=== PATIENT | male | born 1950 | race Caucasian/White ===

== ENCOUNTER 2019-08-12 05:36 | Day surgery (SDC) | payer MEDICARE, BC ==
[~2019-08-12] VITALS: Ht 177.8 cm; Wt 93.0 kg
[2019-08-12] VITALS (12 sets, daily range): BP systolic 123–140; BP diastolic 72–80
[~2019-08-12 05:36] MED LIST: ACETAMINOPHEN-1 EAC1 ORAL; BUPROBAN150 MG PO; IMITREX50 MG ORAL; INDOMETHACIN75 MG ORAL; RAMIPRIL2.5 MG ORAL; SIMVASTATIN10 MG ORAL; WELLBUTRIN100 MG ORAL; ZOLOFT25 MG ORAL
[2019-08-12] MEDS ORDERED: LEXAPRO10 MG ORAL (06:18)
[2019-08-12] MEDS ORDERED: WELLBUTRIN SR100 MG ORAL (06:18)
[2019-08-12] MEDS ORDERED: Dexamethasone 4mg/ml vial ONE (06:30)
[2019-08-12] MEDS ORDERED: Lidocaine 1% MPF 10mg/ml 5ml ONE (06:30)
[2019-08-12] MEDS ORDERED: Sodium Chloride 10ml vial INJ ONE (06:30)
[2019-08-12] MEDS ORDERED: fentaNYL 100 mcg/2 mL IV ONE (06:31)
[2019-08-12] MEDS ORDERED: Midazolam 2mg/2ml Inj ONE (06:31)
[2019-08-12] MEDS ORDERED: Bupivacaine w/Epi 0.5% 30ml Vial INJ ONE (06:35)
--- NOTE | 2019-08-12 06:37 | Pre-Procedure Note/Attestation ---
Pre-Procedure Note/Attestation Complete Prior to Procedure Planned Procedure: right Procedure Narrative: Arthroscopy, Intra-articular Surgery Right Knee Indications for Procedure Pre-Operative Diagnosis: Torn Medial Meniscus Right Knee Attestation I attest that I discussed the nature of the procedure; its benefits; risks and complications; and alternatives (and the risks and benefits of such alternatives ), prior to the procedure, with the patient (or the patient's legal advertising account representative). I attest that, if there was a reasonable possibility of needing a blood transfusion, the patient (or the patient's legal advertising account representative) was given the [facility] standardized written summary, pursuant to the Chema Lattimer Blood Safety Act ([place] Health and Safety Code # 1645, as amended). I attest that I re-evaluated the patient just prior to the surgery and that there has been no change in the patient's H&P, except as documented below: GENARO MABRY Aug 12, 2019 06:37
[2019-08-12] MEDS ORDERED: LR 1000ml 1,000 ML IVLG SCH (06:43)
[2019-08-12] MEDS ORDERED: HYDROcodone/Acetamin 5/325 tab ORAL PRN (06:45)
[2019-08-12] MEDS ORDERED: Hydromorphone 0.5mg/0.5ml inj IVP PRN (06:45)
[2019-08-12] MEDS ORDERED: DiphenhydrAMINE 50mg/ml Inj IVP PRN (06:45)
[2019-08-12] MEDS ORDERED: fentaNYL 100 mcg/2 mL IV PRN (06:45)
[2019-08-12] MEDS ORDERED: Acetaminophen (Non formulary) 100 ML IV ONE (06:45)
[2019-08-12] MEDS ORDERED: LORazepam Inj 2mg/ml 1ml IV PRN (06:45)
[2019-08-12] MEDS ORDERED: Midazolam 2mg/2ml Inj IVP PRN (06:45)
[2019-08-12] MEDS ORDERED: Ketorolac 30mg Inj IV PRN ×2 (06:45)
[2019-08-12] MEDS ORDERED: Labetalol 5mg/ml 20ml vial IV PRN (06:45)
[2019-08-12] MEDS ORDERED: Atropine Sulfate 0.4mg/ml inj IVP PRN (06:45)
[2019-08-12] MEDS ORDERED: HYDROcodone/Acetamin 7.5/325 tab ORAL PRN (06:45)
[2019-08-12] MEDS ORDERED: oxyCODONE HCL/Acetaminophen 5/325mg ORAL PRN (06:45)
[2019-08-12] MEDS ORDERED: Metoclopramide 10mg/2ml Inj IVP PRN (06:45)
--- NOTE | 2019-08-12 06:49 | Anethesia Preoperative Eval ---
Anesthesia Pre-op PMH/ROS General Date of Evaluation: Aug 12, 2019 Time of Evaluation: 06:46 Anesthesiologist: Carroll ASA Score: ASA 3 Mallampati Score Class I : Soft palate, uvula, fauces, pillars visible Class II: Soft palate, uvula, fauces visible Class III: Soft palate, base of uvula visible Class IV: Only hard plate visible Mallampati Classification: Class II Surgeon: Armond Diagnosis: R Knee Pain Surgical Procedure: R Knee Atrhroscopy Anesthesia History: none Family History: no anesthesia problems Allergies: Coded Allergies: No Known Allergies (Unverified , 01/26/13) Medications: see eMAR Patient NPO?: Yes Past Medical History Cardiovascular: Reports: HTN, other - HL Pulmonary: Reports: GARY Neurologic/Psychiatric: Reports: depression/anxiety Endocrine: Reports: DM Other: obesity - BMI 31 PSxH Narrative: L Knee SX Anesthesia Pre-op Phys. Exam Physician Exam Last Vital Signs Date Time Temp Pulse Resp B/P (MAP) Pulse Ox O2 Delivery O2 Flow Rate FiO2 08/12/19 06:12 Room Air 08/12/19 06:11 98.0 57 20 140/76 95 Constitutional: NAD Neurologic: CN 2-12 intact Cardiovascular: RRR Respiratory: CTA Gastrointestinal: S/NT/ND Airway Exam Mallampati Score: Class II MO: full ROM: limited Teeth: missing, intact Anesthesia Pre-op A/P Risk Assessment & Plan Assessment: ASA 3 Plan: GA Status Change Before Surgery: No Pre-Antibiotics Dru Grams Ancef IV Given Within 1 Hr of Incision: Yes Time Given: 07:01 Woody Hodges MD Aug 12, 2019 06:49
--- NOTE | 2019-08-12 06:54 | Immediate Post-Op Evaluation ---
Immediate Post-Op Evalulation Immediate Post-Op Evalulation Procedure: R Knee Arthroscopy Date of Evaluation: Aug 12, 2019 Time of Evaluation: 08:27 IV Fluids: 800 LR Blood Products: 0 Estimated Blood Loss: 25 Urinary Output: 0 Blood Pressure Systolic: 135 Blood Pressure Diastolic: 76 Pulse Rate: 72 Respiratory Rate: 16 O2 Sat by Pulse Oximetry: 100 Temperature (Fahrenheit): 97.6 Pain Score (1-10): 2 Nausea: No Vomiting: No Complications 0 Patient Status: awake, reacts, patent, none Hydration Status: adequate Dru Grams Ancef IV Given Within 1 Hr of Incision: Yes Time Given: 07:01 Woody Hodges MD Aug 12, 2019 06:54
--- NOTE | 2019-08-12 06:55 | 48 Hour Post Anesthesia Eval ---
Post Anesthesia Evaluation Procedure: R Knee Arthroscopy Date of Evaluation: Aug 12, 2019 Time of Evaluation: 10:34 Blood Pressure Systolic: 132 0: 74 Pulse Rate: 71 Respiratory Rate: 18 Temperature (Fahrenheit): 98.2 O2 Sat by Pulse Oximetry: 97 Airway: patent Nausea: No Vomiting: No Pain Intensity: 2 Hydration Status: adequate Cardiopulmonary Status: Stable Mental Status/LOC: patient returned to baseline Follow-up Care/Observations: 0 Post-Anesthesia Complications: 0 Follow-up care needed: ready to discharge Woody Hodges MD Aug 12, 2019 06:55
[2019-08-12] MEDS ORDERED: LR 1000ml ONE (07:00)
[2019-08-12] MEDS ORDERED: Glycopyrrolate 0.2mg/ml 1ml Vial ONE (07:00)
[2019-08-12] MEDS ORDERED: NS Irrig 4000ml IRRIG ONE ×2 (07:00→07:32)
[2019-08-12] MEDS ORDERED: EPINEPHrine 1mg/1ml Amp ONE (07:00)
[2019-08-12] MEDS ORDERED: Propofol 200mg/20ml IV ONE (07:00)
[2019-08-12] MEDS ORDERED: Meperidine 25mg/0.5ml Inj (FOR RIGORS ONLY) IV PRN (07:15)
--- NOTE | 2019-08-12 08:28 | Brief Operative Note ---
Immediate Post Operative Note Operative Note Pre-op Diagnosis: Torn Medial Meniscus Right Knee Procedure: Arthroscopy, Arthroscopic Partial Medial Meniscectomy Right Knee Post-op Diagnosis: Same, plus Grade IV Chondromalacia Medial Tibial Plateau, Grade II changes MFC, LTP Surgeon: Robson Naphthol Soaping Machine Operator: None Anesthesiologist: Carroll Anesthesia: general Specimen: yes Complications: none Condition: stable Fluids: Per Anesthesia Estimated Blood Loss: minimal Drains: none Tourniquet time: 13 Implant(s) used?: No GENARO MABRY Aug 12, 2019 08:28
--- NOTE | 2019-08-12 16:30 | Operative Note - Dictated ---
DATE OF OPERATION: 08/12/2019 SURGEON: Hay Chance M.D. DIRECTOR OF REIMBURSEMENT: None. ANESTHESIOLOGIST: Dr. Hodges. PREOPERATIVE DIAGNOSIS: Torn medical meniscus, right knee. 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 OPERATION: Arthroscopy, arthroscopic partial medial meniscectomy; limited chondroplasty medial tibial plateau, right knee. DESCRIPTION OF PROCEDURE: The patient was brought to the operating room and placed comfortably in the supine position on the operating table. After satisfactory induction of general endotracheal anesthesia, a tourniquet was placed at the proximal aspect of the right lower extremity. The extremity was then prepped and draped in the usual sterile fashion. Standard 1 cm vertical oblique arthroscopy portals were placed 1 cm medial and 1 cm lateral to the patellar tendon, and 1 cm above the respective joint lines. A 60 mL of sterile irrigation fluid was introduced into the knee and the medial suprapatellar inflow cannula was introduced. The arthroscope was placed through the lateral portal. The patellofemoral examination revealed normal tracking. There was no evidence of medial synovial plica or loose bodies. The patellofemoral articulation revealed grade 2-3 chondromalacic changes, particularly at the lateral facet, as well as the trochlea. No loose fibrillations requiring debridement were present. The tourniquet was inflated to 225 mmHg. Examination of the medial compartment revealed a small vertical tear at the remaining peripheral rim of the posterior horn of the medial meniscus. Mesially, very little posterior horn have remained. Grade 4 chondromalacic change was noted over 80% of the medial tibial plateau, with grade 2 changes also noted at the medial femoral condyle. Tourniquet was inflated, as noted. The torn portion of the medial meniscus was resected using a combination of straight and curved basket forceps. A smooth transition was created to the intact mid zone. At the conclusion of the resection, the remaining meniscus was vigorously probed with no portion found to be loose or dislocatable into the joint. The compartment was then cleared of all meniscal debris using a motorized shaver and suction. A minimal chondroplasty was performed at the medial tibial plateau. The anterior and posterior cruciate ligaments were intact. The lateral femoral condyle was without defect. The lateral tibial plateau revealed grade 2 changes. No loose bodies were noted in the lateral gutter. The lateral meniscus was intact. The knee was then thoroughly irrigated to remove any remaining meniscal debris. The tourniquet was inflated for a total of 13 minutes. The medial and lateral portals were then closed with 3-0 nylon sutures, as well as the medial inflow portal. A 10 mL of 0.5% Marcaine with epinephrine were instilled into the knee at the conclusion. A sterile Xeroform dressing and ELIZABETH stocking were applied at the conclusion of the procedure. Estimated blood loss was negligible. Sponge and needle counts at the conclusion of the procedure were correct. The patient tolerated the procedure well and was returned to the recovery room in good condition. Hay Chance M.D. DR: BRITT JOB#: [id number] CC:
== END 2019-08-12 11:15 | disposition home or self-care (01) ==
LOC: SUR 05:36
DX: S83.241A Other tear of medial meniscus, current injury, right knee, initial encounter (principal); I10 Essential (primary) hypertension; G47.33 Obstructive sleep apnea (adult) (pediatric); E11.9 Type 2 diabetes mellitus without complications; E66.9 Obesity, unspecified; F32.9 Major depressive disorder, single episode, unspecified; F41.9 Anxiety disorder, unspecified; Z68.29 Body mass index [BMI] 29.0-29.9, adult; X58.XXXA Exposure to other specified factors, initial encounter; Y92.9 Unspecified place or not applicable
CPT/HCPCS: 29881; 82962; 97161; J0131; J0171; J0690; J1885; J2250; J2405; J2704; J3010; J7120; 94003; 94150